=== PATIENT | female | born 1940 | race Caucasian/White ===

== ENCOUNTER 2016-08-30 09:30 | Observation (INO) | payer MEDICARE, OTHER ==
[2016-08-23 09:42] LABS: BASOPHILS 0.5 %; BASOPHILS ABSOLUTE 0.02 10/3/uL (0.0-0.16); EOSINOPHILS ABSOLUTE 0.04 10/3/uL (0.0-0.53); HEMATOCRIT 36.3 % (36.0-48.0); HEMOGLOBIN 12.5 g/dL (12.0-16.0); IMMATURE GRANULOCYTES 0.5 %; IMMATURE GRANULOCYTES ABSOLUTE 0.02 10/3/uL (0.0-0.11); LYMPHOCYTES 36.9 %; LYMPHOCYTES ABSOLUTE 1.42 10/3/uL (0.67-4.30); MEAN CORPUS HGB CONC 34.4 g/dL (32.0-36.0); MEAN CORPUSCULAR HEMOGLOB 30.7 pg (26.0-34.0); MEAN PLATELET VOLUME 9.1 fL (9.2-13.0); MONOCYTES 8.6 %; MONOCYTES ABSOLUTE 0.33 10/3/uL (0.21-1.20); NEUTROPHILS 52.5 %; NEUTROPHILS ABSOLUTE 2.02 10/3/uL (2.02-8.40); PLATELET COUNT 204 10/3/uL (150-400); RBC DISTRIBUTION WIDTH 13.8 % (12.0-16.0); RED CELL COUNT 4.07 10/6/uL (4.0-5.6); WHITE BLOOD CELLS 3.9 10/3/uL (4.5-10.5)
[2016-08-23 09:43] LABS: MANUAL DIFF NO %; MEAN CORPUSCULAR VOLUME 89.2 fL (80-100)
[2016-08-23 09:49] LABS: PARTIAL THROMBO TIME 29.1 SEC (22.5-37.2); PROTIME (NOT ORD) 13.3 SEC (12.0-14.5)
[2016-08-23 09:55] LABS: CALCIUM, SERUM 8.5 MG/DL (8.5-10.4); CHLORIDE, SERUM 102 MMOL/L (96-112); CO2 (CARBON DIOXIDE) 28 MMOL/L (24-34); CREATININE 0.86 MG/DL (0.55-1.02); GFR AFRICAN AMERICAN 76 ML/MIN (>=60); GFR NON AFRICAN AMERICAN 65 ML/MIN (>=60); GLUCOSE, SERUM 85 MG/DL (60-99); SODIUM, SERUM 138 MMOL/L (135-148)
[2016-08-23 09:58] LABS: BUN (BLOOD UREA NITROGEN) 11 MG/DL (6-23); POTASSIUM, SERUM 3.9 MMOL/L (3.5-5.3)
--- NOTE | ~2016-08-30 | OP ---
Record Of Operation [facility] [address] [place]. [address] NAME: YOVANY RODRIGUEZ : 38 STATUS : DIS Antoni PAT#: [id number] AGE: 76 ADM/REG DATE : 08/30/16 MR#: [id number] REPORT SERV DATE: 08/31/16 DICTATED BY: VIVIEN ENRIQUEZ DATE: 08/31/16 REPORT STATUS : Draft TRANSCRIBED BY: SHERLEY DATE: 08/31/16 DATE OF PROCEDURE: 08/30/2016 PREOPERATIVE DIAGNOSIS: Left thyroid lobe nodule with compressive symptoms. POSTOPERATIVE DIAGNOSIS: Left thyroid lobe nodule with compressive symptoms. OPERATIVE PROCEDURE PERFORMED: Left thyroid lobectomy or completion thyroidectomy. INDICATIONS AND SIGNIFICANT HISTORY: The patient is a 76-year-old female status post right thyroid lobectomy 50 years ago. She since developed a nodule within the left thyroid lobe and was felt to benefit from surgical therapy. OPERATIVE PROCEDURE AND FINDINGS: After informed consent was obtained, the patient was brought to the operating room and placed on the operating room table in supine position. At which point, general endotracheal anesthesia was induced by Anesthesia Service utilizing a NIM nerve monitor. NIM nerve monitor was setup to monitor laryngeal musculatures throughout the course of the case. At this point, the skin of the neck was prepped and draped in standard sterile fashion. A 15 blade scalpel was used to cut through partially through her low neck incision and subplatysmal flap was elevated superiorly and inferiorly. Strap muscles appeared to have been divided, and were stuck down to the surface of the gland. The left thyroid lobe was then dissected. The middle thyroid veins were divided with bipolar cautery. Superior pole vessels were divided with Harmonic scalpel. The inferior pole vessels were divided with bipolar cautery. Great care was taken to preserve the soft-tissue present in the posterior edge of the gland, and the recurrent laryngeal nerve was held intact throughout the course of dissection. The left thyroid lobe along with the associated notch was then removed from the left neck without complication. Preoperative PTH testing had been performed, and a preoperative PTH was approximately 30. Postoperative lab was drawn 10 minutes afterwards, and was found to be 20. Wound was closed in multiple layers consisting of deep Vicryl suture followed by closure of the skin with Prolene. The patient then had Steri-Strips applied, and was turned back toward Anesthesia. Aroused from anesthesia, and taken to the Post-Anesthesia Care Unit in satisfactory condition. COMPLICATIONS: None. ESTIMATED BLOOD LOSS: Less than 5 mL. IV FLUIDS: Per Anesthesia. FRITZ/SHERLEY Vivien Enriquez M.D. Record Of [address] [address] NAME: YOVANY RODRIGUEZ : 38 STATUS : DIS Antoni PAT#: [id number] AGE: 76 ADM/REG DATE : 08/30/16 MR#: [id number] REPORT SERV DATE: 08/31/16 DICTATED BY: VIVIEN ENRIQUEZ. DATE: 08/31/16 REPORT STATUS : Draft TRANSCRIBED BY: SHERLEY DATE: 08/31/16 / [id number] CC: Vivien Enriquez M.D.
[~2016-08-30 09:30] MED LIST: ACET500CAP PO; AMB10 PO; ASA5GR PO; ASABAYER; ATEN50 PO; BACDS PO; CALTRA600D PO; CELEXA20 PO; CELEXA40 MG PO; COZ50 PO; CYMBALTA20 PO; DIL2TAB PO; DITRO5 PO; FERROUS SULF325 M1 PO; FISH-EPA1000 MG PO; FLEXERIL5 MG PO; GABAPENTIN PO; HAIR SKIN & NAILS; HALF81 PO; HARD NAILS OR; HYDROCHLOROT12.5 MG PO; L20 PO; L40 PO; LEVAQUIN750 MG PO; LEVOTHYROXIN100 MCG PO; LEVOTHYROXIN112 MCG PO; LEVOTHYROXIN125 MCG PO; LEVOTHYROXIN150 MCG PO; LOM PO; LORT7 PO; LORTAB10 PO; LYRICA100 MG PO; MAX25 PO; MAXZIDE PO; METHOC750B PO; MSCONTIN PO; MUCINEX600 MG PO; MULTIPLE VIT PO; MULTIVIT/MIN PO; NEUR300 PO; NORCO1 TA1 PO; NORCO1 TAB PO; NORV5 PO; OS500+D PO; PR25 PO; PRAVACHOL40 MG PO; PRILO PO; PRIM50B PO; PROZ10 PO; PROZAC40 MG PO; QUESTRAN4 GM PO; REM15 PO; SYN075 PO; SYN112 PO; ULTRAM50 PO; UROGESIC-BLU OR; VITAMIN B-122500 MCG SL; VITAMIN D31000 UNIT PO; VITAMIN D400 UNI1 PO; ZOFRAN4 PO; ZYRTEC ALLGY10 MG PO
[2016-08-30 11:25] LABS: PTH (INTRAOPERATIVE) 30.9 PG/ML (10.0-65.0); PTH TAT 0 Hrs 19 Mins
[2016-08-30 12:09] LABS: PTH (INTRAOPERATIVE) 20.8 PG/ML (10.0-65.0); PTH TAT 0 Hrs 00 Mins
[2016-08-30 20:41] LABS: BUN (BLOOD UREA NITROGEN) 9 MG/DL (6-23); CALCIUM, SERUM 8.2 MG/DL (8.5-10.4); CHLORIDE, SERUM 104 MMOL/L (96-112); CO2 (CARBON DIOXIDE) 25 MMOL/L (24-34); CREATININE 0.97 MG/DL (0.55-1.02); GFR AFRICAN AMERICAN 65 ML/MIN (>=60); GFR NON AFRICAN AMERICAN 56 ML/MIN (>=60); GLUCOSE, SERUM 172 MG/DL (60-99); POTASSIUM, SERUM 4.4 MMOL/L (3.5-5.3); SODIUM, SERUM 138 MMOL/L (135-148)
[2016-08-31 06:45] LABS: BUN (BLOOD UREA NITROGEN) 9 MG/DL (6-23); CALCIUM, SERUM 8.6 MG/DL (8.5-10.4); CHLORIDE, SERUM 103 MMOL/L (96-112); CO2 (CARBON DIOXIDE) 26 MMOL/L (24-34); CREATININE 0.76 MG/DL (0.55-1.02); GFR AFRICAN AMERICAN 88 ML/MIN (>=60); GFR NON AFRICAN AMERICAN 76 ML/MIN (>=60); PHOSPHORUS, SERUM 3.3 MG/DL (2.5-4.5); POTASSIUM, SERUM 3.9 MMOL/L (3.5-5.3); SODIUM, SERUM 138 MMOL/L (135-148)
[2016-08-31 06:47] LABS: GLUCOSE, SERUM 103 MG/DL (60-99)
[2016-08-31] MEDS ORDERED: NORCO1 TA1 PO (08:30)
[2016-08-31] MEDS ORDERED: ROCALTROL0.5 MCG PO (08:31)
[2017-02-24] MEDS ORDERED: CYMBALTA30 PO (14:58)
[2017-02-24] MEDS ORDERED: MULTIPLE VIT PO (15:26)
== END 2016-08-31 14:13 | disposition home or self-care (01) ==
LOC: SDC 09:30 → SDC/OF 12:32 → 4SO 14:11
PROVIDERS: Otolaryngology
PROC: 0GTG0ZZ Resection of Left Thyroid Gland Lobe, Open Approach (ICD-10-PCS; principal; 2016-08-30 10:45)
DX: E04.1 Nontoxic single thyroid nodule (principal); I10 Essential (primary) hypertension; E89.0 Postprocedural hypothyroidism; D64.9 Anemia, unspecified; G89.29 Other chronic pain; M54.9 Dorsalgia, unspecified; M19.90 Unspecified osteoarthritis, unspecified site; M41.9 Scoliosis, unspecified; F32.9 Major depressive disorder, single episode, unspecified; M85.80 Other specified disorders of bone density and structure, unspecified site; K90.0 Celiac disease; Z88.5 Allergy status to narcotic agent; Z88.8 Allergy status to other drugs, medicaments and biological substances; Z87.891 Personal history of nicotine dependence; Z79.52 Long term (current) use of systemic steroids; Z79.899 Other long term (current) drug therapy; Z90.711 Acquired absence of uterus with remaining cervical stump; Z98.41 Cataract extraction status, right eye; Z98.42 Cataract extraction status, left eye; Z96.651 Presence of right artificial knee joint; Z98.890 Other specified postprocedural states; Z90.49 Acquired absence of other specified parts of digestive tract
CPT/HCPCS: 80048; 82330; 83735; 83970; 84100; 85025; 85610; 85730; 88307; 93005; A9270-GY; G0378; J0690; J1170; J2250; J2405; J2710; J3010